=== PATIENT | male | born 1940 | race Two or more races ===

== ENCOUNTER 2018-09-22 10:02 | Outpatient (CLI) | payer OTHER ==
[~2018-09-22 10:02] MED LIST: ALBUTEROL17 GM; HYZAAR 100-251 UDTAB PO; HYZAAR 50-12.1 UDTAB; INTEGRA F CAPS1 EACH PO; METFORMIN HCL500 M1; METOPROLOL SUC100 MG; NORVASC 5MG TAB PO; TOPROL XL100 MG; TOPROL XL25 M1 PO; ZYRTEC10 MG
== END 2018-09-22 10:11 | disposition home or self-care (01) ==
LOC: MRI 10:02
DX: M25.561 Pain in right knee (principal)
CPT/HCPCS: 73721

== ENCOUNTER 2018-11-06 07:17 | Outpatient (CLI) | payer OTHER | END 2018-11-06 07:51 | disposition home or self-care (01) | LOC: LAB 07:17 | DX: E78.1 Pure hyperglyceridemia (principal); E78.00 Pure hypercholesterolemia, unspecified; I10 Essential (primary) hypertension ==

== ENCOUNTER 2018-11-06 08:51 | Outpatient (CLI) | payer OTHER | END 2018-11-06 08:56 | disposition home or self-care (01) | LOC: RAD 08:51 | DX: R07.89 Other chest pain (principal) ==

== ENCOUNTER → 2018-11-07 | Outpatient (CLI) | payer OTHER | END | disposition home or self-care (01) | LOC: TOM 09:45 | DX: R51 Headache (principal) ==

== ENCOUNTER 2018-12-08 13:20 | Outpatient (CLI) | payer OTHER | END 2018-12-08 13:23 | disposition home or self-care (01) | LOC: MRI 13:20 | DX: G30.1 Alzheimer's disease with late onset (principal) | CPT/HCPCS: 70551 ==

== ENCOUNTER 2018-12-18 12:36 | Outpatient (CLI) | payer OTHER | END 2018-12-18 12:50 | disposition home or self-care (01) | LOC: RAD 12:36 | DX: M26.602 Left temporomandibular joint disorder, unspecified (principal) ==

== ENCOUNTER → 2019-01-22 08:15 | Outpatient (CLI) | payer OTHER | END | disposition home or self-care (01) | LOC: LAB 08:15 | DX: I50.89 Other heart failure (principal); E78.00 Pure hypercholesterolemia, unspecified; E78.1 Pure hyperglyceridemia; I20.8 Other forms of angina pectoris ==

== ENCOUNTER 2020-10-24 08:53 | Outpatient (CLI) | payer OTHER | END 2020-10-24 09:26 | disposition home or self-care (01) | LOC: TOM 08:53 | PROVIDERS: ATTEND Internal Medicine Pulmonary Disease | DX: J45.40 Moderate persistent asthma, uncomplicated (principal); R06.02 Shortness of breath ==

== ENCOUNTER → 2020-11-20 08:07 | Outpatient (CLI) | payer OTHER | END | disposition home or self-care (01) | LOC: LAB 08:07 | PROVIDERS: ATTEND Internal Medicine Cardiovascular Disease | DX: J32.8 Other chronic sinusitis (principal); I10 Essential (primary) hypertension; N41.8 Other inflammatory diseases of prostate; E11.8 Type 2 diabetes mellitus with unspecified complications ==

== ENCOUNTER → 2020-11-24 | Outpatient (CLI) | payer OTHER | END | disposition home or self-care (01) | LOC: TOM 07:59 | PROVIDERS: ATTEND Internal Medicine Cardiovascular Disease | DX: Z12.11 Encounter for screening for malignant neoplasm of colon (principal); Z13.0 Encounter for screening for diseases of the blood and blood-forming organs and certain disorders involving the immune mechanism ==

== ENCOUNTER 2022-04-30 13:14 | Outpatient (CLI) | payer OTHER | END 2022-04-30 13:17 | disposition home or self-care (01) | LOC: RAD 13:14 | PROVIDERS: ATTEND Internal Medicine Cardiovascular Disease | DX: M25.561 Pain in right knee (principal); J44.1 Chronic obstructive pulmonary disease with (acute) exacerbation ==

== ENCOUNTER 2022-05-03 08:36 | Outpatient (CLI) | payer OTHER | END 2022-05-03 08:38 | disposition home or self-care (01) | LOC: NUCLEAR 08:36 | PROVIDERS: ATTEND Internal Medicine Cardiovascular Disease | DX: I10 Essential (primary) hypertension (principal); Z88.0 Allergy status to penicillin ==

== ENCOUNTER 2024-10-25 11:34 | Outpatient (CLI) | payer OTHER | END 2024-10-25 11:40 | disposition home or self-care (01) | LOC: RAD 11:34 | PROVIDERS: ATTEND Internal Medicine Pulmonary Disease | DX: J45.30 Mild persistent asthma, uncomplicated (principal) ==